=== PATIENT | male | born 1970 | race Two or more races ===

== ENCOUNTER 2017-02-12 19:48 | Emergency (ER) | payer SELFPAY ==
[~2017-02-12] VITALS: Ht 160 cm; Wt 95.3 kg
[2017-02-12] MEDS ORDERED: NKM (19:58)
[2017-02-12 20:15] VITALS: BP 161/85
[2017-02-12] MEDS ORDERED: Ketorolac 60mg Inj IM ONE (20:15)
[2017-02-12] MEDS ORDERED: Bacitracin Oint UD TOPIC ONE (20:15)
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
[2017-02-12] MEDS ORDERED: CYCLOBENZAPRINE10 MG ORAL (20:38)
[2017-02-12] MEDS ORDERED: IBUPROFEN600 MG ORAL (20:38)
[2017-02-12 22:10] VITALS: BP 154/72
== END 2017-02-12 21:17 | disposition home or self-care (01) ==
LOC: EMR 20:32
DX: S16.1XXA Strain of muscle, fascia and tendon at neck level, initial encounter (principal); S50.812A Abrasion of left forearm, initial encounter; V43.52XA Car driver injured in collision with other type car in traffic accident, initial encounter; Y92.410 Unspecified street and highway as the place of occurrence of the external cause
CPT/HCPCS: 96372; 99284